=== PATIENT | female | born 1930 | race Hispanic/Latino ===

== ENCOUNTER 2017-11-27 14:58 | Emergency (ER) | payer MEDICARE ==
[2017-11-27 15:32] LABS: Basophils # (Auto) 0.1 K/mm3 (0.0-0.1); Eosinophils % (Auto) 0.3 % (0.0-4.3); Hematocrit 34.4 % (30.3-42.9); Hemoglobin 11.4 gm/dl (10.1-14.3); Lymphocytes # (Auto) 2.5 K/mm3 (1.2-5.4); Lymphocytes % (Auto) 22.4 % (13.4-35.0); Mean Corpuscular HGB Conc 33 % (30-34); Mean Corpuscular Hemoglobin 29 pg (28-32); Mean Corpuscular Volume 89 fl (79-97); Monocytes # (Auto) 0.8 K/mm3 (0.0-0.8); Monocytes % (Auto) 7.5 % (0.0-7.3); Platelet Count 420 K/mm3 (140-440); Red Blood Count 3.88 M/mm3 (3.65-5.03); Red Cell Distribution Width 15.5 % (13.2-15.2)
[2017-11-27 15:47] LABS: Calcium 9.4 mg/dL (8.4-10.2)
--- NOTE | 2017-11-27 15:52 | Cat Scan Report ---
FINAL REPORT EXAM: CT HEAD/BRAIN WO CON HISTORY: altered mental status TECHNIQUE: CT examination of the head without IV contrast PRIORS: None. FINDINGS: Small polyp or retention cyst in left ethmoid sinus posteriorly. Small benign-appearing osteoma anterior inferior right frontal sinus. Nonspecific partial opacification of the left mastoid air cells. Small fluid level noted inferiorly. Bone windows demonstrate no acute fracture. There is ventricular and sulcal prominence compatible with global cerebrocortical atrophy. The brain contains no mass, mass effect, hemorrhage, or acute infarct. There is no extra-axial intracranial bleed, brain bleed, or midline shift. IMPRESSION: No acute CVA, intracranial bleed, or brain mass Partial opacification left mastoid air cells with small fluid level may reflect eustachian tube dysfunction. Differential includes acute left mastoiditis
[2017-11-27 15:56] LABS: Bacteria,Urine 2+ /HPF (Negative); Bilirubin,Urine NEG (Negative); Blood,Urine SM (Negative); Color,Urine Yellow (Yellow); Mucus,Urine FEW /HPF; Protein,Urine <15 mg/dL mg/dL (Negative); Urobilinogen,Urine < 2.0 mg/dL (<2.0)
[2017-11-27 16:03] LABS: Amphetamine Screen,Urine PRESUMPTIVE NEGATIVE; Benzodiazepines Screen,Urine PRESUMPTIVE NEGATIVE; Cannabinoid Screen,Urine PRESUMPTIVE NEGATIVE; Cocaine Screen,Urine PRESUMPTIVE NEGATIVE; Methadone Screen,Urine PRESUMPTIVE NEGATIVE; Opiate Screen,Urine PRESUMPTIVE NEGATIVE
[2017-11-27] MEDS ORDERED: BABY ASPIRIN PO ONE (17:32)
--- NOTE | 2017-11-27 17:32 | Emergency Department Report ---
ED Neck Pain/Injury HPI - General Chief Complaint: Altered Mental Status Stated Complaint: AMS Time Seen by Provider: 11/27/17 17:12 Mode of arrival: Stretcher Limitations: Altered Mental Status - Related Data Allergies Allergy/AdvReac Type Severity Reaction Status Date / Time Unable to Assess Allergy Unverified 11/27/17 15:02 ED Review of Systems ROS: Stated complaint: AMS Other details as noted in HPI ED Past Medical Hx - Past Medical History Previous Medical History?: Yes Additional medical history: anxiety - Social History Smoking Status: Unknown if ever smoked ED Physical Exam - General Limitations: Altered Mental Status ED Course Vital Signs 11/27/17 11/27/17 11/27/17 15:02 15:05 15:11 Temperature 100 F H Pulse Rate 73 Respiratory 16 Rate Blood Pressure Blood Pressure 157/76 [Right] O2 Sat by Pulse 99 98 98 Oximetry 11/27/17 11/27/17 11/27/17 15:33 15:35 15:44 Temperature Pulse Rate Respiratory 16 Rate Blood Pressure 157/76 Blood Pressure [Right] O2 Sat by Pulse 98 97 98 Oximetry 11/27/17 11/27/17 16:00 16:30 Temperature Pulse Rate Respiratory Rate Blood Pressure 161/92 145/66 Blood Pressure [Right] O2 Sat by Pulse 97 98 Oximetry ED Medical Decision Making - Lab Data Result diagrams: 11/27/17 15:22 11/27/17 15:22 Critical care attestation.: If time is entered above; I have spent that time in minutes in the direct care of this critically ill patient, excluding procedure time. ED Disposition Condition: Stable Referrals: PRIMARY CARE, [Primary Care Provider] - 3-5 Days
--- NOTE | 2017-11-27 17:32 | Emergency Department Report ---
ED General Adult HPI - General Chief complaint: Altered Mental Status Stated complaint: AMS Time Seen by Provider: 11/27/17 17:12 Source: family, EMS (ems notes not available at time of chart dictation) Mode of arrival: Stretcher Limitations: Altered Mental Status - History of Present Illness Initial comments: This is an 87-year-old female who is unknown to this provider who is brought to the hospital with family for change in mental status. Family reports the patient has had a dramatic change in speech within the past week. They indicate that the patient needs to make sense when she was talking, but now is speaking nonsensically. The patient is altered and demented, and cannot describe exacerbating or relieving factors. Family endorses no fever, cough, vomiting. -: unknown Severity scale (0 -10): 0 Improves with: none Worsens with: none Associated Symptoms: confusion, weakness - Related Data Allergies Allergy/AdvReac Type Severity Reaction Status Date / Time Unable to Assess Allergy Unverified 11/27/17 15:02 ED Review of Systems ROS: Stated complaint: AMS Other details as noted in HPI Comment: Unobtainable due to pts medical conditions ED Past Medical Hx - Past Medical History Previous Medical History?: Yes Additional medical history: anxiety - Social History Smoking Status: Unknown if ever smoked ED Physical Exam - General Limitations: Altered Mental Status, Physical Limitation General appearance: alert, in no apparent distress, anxious - Head Head exam: Present: atraumatic, normocephalic - Eye Eye exam: Present: normal appearance - ENT ENT exam: Present: normal orophraynx, mucous membranes moist - Neck Neck exam: Present: normal inspection, full ROM - Respiratory Respiratory exam: Present: normal lung sounds bilaterally. Absent: respiratory distress - Cardiovascular Cardiovascular Exam: Present: regular rate, normal rhythm, normal heart sounds. Absent: systolic murmur, diastolic murmur, rubs, gallop - GI/Abdominal GI/Abdominal exam: Present: soft. Absent: distended, tenderness, guarding, rebound, rigid, pulsatile mass - Extremities Exam Extremities exam: Present: normal inspection, full ROM, normal capillary refill , other (2+ pulses noted in the bilateral upper, lower extremities. Compartments soft. No long bony tenderness. The pelvis is stable.). Absent: pedal edema, joint swelling, calf tenderness - Back Exam Back exam: Present: normal inspection. Absent: tenderness, CVA tenderness (R) - Neurological Exam Neurological exam: Present: altered, other (patient moving 4 extremities spontaneously. There is no obvious facial droop. Unable to assess sensation or orientation. The patient construction sentences that make no sense. She does not follow commands.) - Psychiatric Psychiatric exam: Present: anxious - Skin Skin exam: Present: warm, dry, intact, normal color. Absent: rash ED Course Vital Signs 11/27/17 11/27/17 11/27/17 15:02 15:05 15:11 Temperature 100 F H Pulse Rate 73 Respiratory 16 Rate Blood Pressure Blood Pressure 157/76 [Right] O2 Sat by Pulse 99 98 98 Oximetry 11/27/17 11/27/17 11/27/17 15:33 15:35 15:44 Temperature Pulse Rate Respiratory 16 Rate Blood Pressure 157/76 Blood Pressure [Right] O2 Sat by Pulse 98 97 98 Oximetry 11/27/17 11/27/17 11/27/17 16:00 16:30 18:02 Temperature 98.1 F Pulse Rate 65 Respiratory 16 Rate Blood Pressure 161/92 145/66 Blood Pressure 107/86 [Right] O2 Sat by Pulse 97 98 97 Oximetry ED Medical Decision Making - Lab Data Result diagrams: 11/27/17 15:22 11/27/17 15:22 Vital Signs 11/27/17 11/27/17 11/27/17 15:02 15:05 15:11 Temperature 100 F H Pulse Rate 73 Respiratory 16 Rate Blood Pressure Blood Pressure 157/76 [Right] O2 Sat by Pulse 99 98 98 Oximetry 11/27/17 11/27/17 11/27/17 15:33 15:35 15:44 Temperature Pulse Rate Respiratory 16 Rate Blood Pressure 157/76 Blood Pressure [Right] O2 Sat by Pulse 98 97 98 Oximetry 11/27/17 11/27/17 11/27/17 16:00 16:30 18:02 Temperature 98.1 F Pulse Rate 65 Respiratory 16 Rate Blood Pressure 161/92 145/66 Blood Pressure 107/86 [Right] O2 Sat by Pulse 97 98 97 Oximetry Laboratory Last Values WBC 11.0 K/mm3 (4.5-11.0) 11/27/17 15:22 RBC 3.88 M/mm3 (3.65-5.03) 11/27/17 15:22 Hgb 11.4 gm/dl (10.1-14.3) 11/27/17 15:22 Hct 34.4 % (30.3-42.9) 11/27/17 15:22 MCV 89 fl (79-97) 11/27/17 15:22 MCH 29 pg (28-32) 11/27/17 15:22 MCHC 33 % (30-34) 11/27/17 15:22 RDW 15.5 % (13.2-15.2) H 11/27/17 15:22 Plt Count 420 K/mm3 (140-440) 11/27/17 15:22 Lymph % (Auto) 22.4 % (13.4-35.0) 11/27/17 15:22 [place] % (Auto) 7.5 % (0.0-7.3) H 11/27/17 15:22 Eos % (Auto) 0.3 % (0.0-4.3) 11/27/17 15:22 Baso % (Auto) 1.0 % (0.0-1.8) 11/27/17 15:22 Lymph # 2.5 K/mm3 (1.2-5.4) 11/27/17 15:22 [place] # 0.8 K/mm3 (0.0-0.8) 11/27/17 15:22 Eos # 0.0 K/mm3 (0.0-0.4) 11/27/17 15:22 Baso # 0.1 K/mm3 (0.0-0.1) 11/27/17 15:22 Seg Neutrophils % 68.8 % (40.0-70.0) 11/27/17 15:22 Seg Neutrophils # 7.6 K/mm3 (1.8-7.7) 11/27/17 15:22 Sodium 138 mmol/L (137-145) 11/27/17 15:22 Potassium 3.4 mmol/L (3.6-5.0) L 11/27/17 15:22 Chloride 98.2 mmol/L (98-107) 11/27/17 15:22 Carbon Dioxide 24 mmol/L (22-30) 11/27/17 15:22 Anion Gap 19 mmol/L 11/27/17 15:22 BUN 13 mg/dL (7-17) 11/27/17 15:22 Creatinine 0.9 mg/dL (0.7-1.2) 11/27/17 15:22 Estimated GFR 60 ml/min 11/27/17 15:22 BUN/Creatinine Ratio 14 % 11/27/17 15:22 Glucose 118 mg/dL (65-100) H 11/27/17 15:22 Calcium 9.4 mg/dL (8.4-10.2) 11/27/17 15:22 Total Bilirubin 0.90 mg/dL (0.1-1.2) 11/27/17 15:22 AST 16 units/L (5-40) 11/27/17 15:22 ALT 7 units/L (7-56) 11/27/17 15:22 Alkaline Phosphatase 62 units/L (35-129) 11/27/17 15:22 Total Protein 7.5 g/dL (6.3-8.2) 11/27/17 15:22 Albumin 4.0 g/dL (3.9-5) 11/27/17 15:22 Albumin/Globulin Ratio 1.1 % 11/27/17 15:22 TSH 0.889 mlU/mL (0.270-4.200) 11/27/17 15:17 Urine Color Yellow (Yellow) 11/27/17 15:09 Urine Turbidity Clear (Clear) 11/27/17 15:09 Urine pH 6.0 (5.0-7.0) 11/27/17 15:09 Ur Specific [place] 1.008 (1.003-1.030) 11/27/17 15:09 Urine Protein <15 mg/dl mg/dL (Negative) 11/27/17 15:09 Urine Glucose (UA) Neg mg/dL (Negative) 11/27/17 15:09 Urine Ketones Neg mg/dL (Negative) 11/27/17 15:09 Urine Blood Sm (Negative) 11/27/17 15:09 Urine Nitrite Neg (Negative) 11/27/17 15:09 Urine Bilirubin Neg (Negative) 11/27/17 15:09 Urine Urobilinogen < 2.0 mg/dL (<2.0) 11/27/17 15:09 Ur Leukocyte Esterase Neg (Negative) 11/27/17 15:09 Urine WBC (Auto) 1.0 /HPF (0.0-6.0) 11/27/17 15:09 Urine RBC (Auto) 2.0 /HPF (0.0-6.0) 11/27/17 15:09 Urine Bacteria (Auto) 2+ /HPF (Negative) 11/27/17 15:09 Urine Mucus Few /HPF 11/27/17 15:09 Urine Opiates Screen Presumptive negative 11/27/17 15:09 Urine Methadone Screen Presumptive negative 11/27/17 15:09 Ur Barbiturates Screen Presumptive negative 11/27/17 15:09 Ur Phencyclidine Scrn Presumptive negative 11/27/17 15:09 Ur Amphetamines Screen Presumptive negative 11/27/17 15:09 U Benzodiazepines Scrn Presumptive negative 11/27/17 15:09 Urine Cocaine Screen Presumptive negative 11/27/17 15:09 U Marijuana (THC) Screen Presumptive negative 11/27/17 15:09 Drugs of Abuse Note Disclamer 11/27/17 15:09 Plasma/Serum Alcohol < 0.01 % (0-0.07) 11/27/17 15:17 - Radiology Data Radiology results: report reviewed, image reviewed Noncontrast CT scan of the brain is negative for acute disease. Chronic findings noted. - Medical Decision Making Differential diagnosis, including but not limited to: Progressing dementia, urinary tract infection, subacute stroke Assessment and plan: 87-year-old female who was brought to the hospital by EMS with altered mental status and change in speech patterns. Her family has played me a voicemail of the patient speaking one week ago and her sentence structure was lucid and articulate. Today, she makes no sense. Suspect combination of progressive dementia and subacute stroke. I have had an extensive discussion with family regarding advanced directives. The daughter informs me that she would like full code/aggressive medical therapy. However, the daughter also concedes that the patient has indicated she would like to be DNR/DNI. I had a very extensive discussion with the daughter and granddaughter regarding advanced directives and goes of care. Currently, the indicate full code. Daughter is amenable to hospital admission at this time. Dr. Garcia except the patient to the medical service for presumed subacute stroke. Patients last known well time was approximately one week ago, therefore not a TPA candidate, and will not benefit from endovascular intervention. A complete NIH score is not calculable at this time as the patient is demented and cannot participate with all aspects of this exam. Critical care attestation.: If time is entered above; I have spent that time in minutes in the direct care of this critically ill patient, excluding procedure time. ED Disposition Clinical Impression: Speech disturbance, Altered mental status Disposition: DC-09 OP ADMIT IP TO THIS HOSP Is pt being admited?: Yes Does the pt Need Aspirin: Yes Condition: Good Referrals: PRIMARY CARE,MD [Primary Care Provider] - 3-5 Days
--- NOTE | 2017-11-27 17:35 | History and Physical Report ---
History of Present Illness Chief complaint: she is weak, not eating, and not acting right History of present illness: 87 YO Female with Severe Malnutrition, Dementia with Behavioral Distubance, Debility, Cerebral Atherosclerosis, Anxiety presents to ED for evaluation. Pt is confused, and unable to provide history. Pt history provided by daughter, who is at bedside during exam and interview. As per daughter, the patient has experienced increased confusion, decreased oral intake, decreased verbalization , word salad, decreased interaction with family over the past 1 month with worsening symptoms over the past 1 week. Pt now exhibits nonsensical speech. Pt is unable to independently conduct activities of daily living. Pt seen and evaluated in ED and found to have symptoms consistent with Acute CVA. Pt is outside therapeutic window for TPA. Pt found to have a poor prognosis. Discussed risks and benefits to family, and family elects to make patient DNR and request Home Hospice Care for symptom management and comfort care. Hospice consulted in ED. Past History Past Medical History: other (Dementia, Severe malnutrition, cerebral atherosclerosis, debility) Past Surgical History: No surgical history, Other (reviewed) Social history: single, lives with family. denies: alcohol abuse, prescription drug abuse Family history: hypertension Medications and Allergies Allergies Allergy/AdvReac Type Severity Reaction Status Date / Time Unable to Assess Allergy Unverified 11/27/17 15:02 Review of Systems ROS unobtainable: due to mental status Exam - Constitutional Vitals: Temp Pulse Resp BP Pulse Ox 100 F H 73 16 145/66 98 11/27/17 15:02 11/27/17 15:02 11/27/17 15:44 11/27/17 16:30 11/27/17 16:30 General appearance: Present: mild distress, cachectic - EENT Eyes: Present: PERRL ENT: hearing intact, clear oral mucosa - Neck Neck: Present: supple, normal ROM - Respiratory Respiratory effort: normal Respiratory: bilateral: CTA - Cardiovascular Heart Sounds: Present: S1 & S2. Absent: rub, click - Extremities Extremities: pulses symmetrical, No edema Peripheral Pulses: within normal limits - Abdominal General gastrointestinal: Present: soft, non-tender, non-distended, normal bowel sounds Female genitourinary: Present: normal - Integumentary Integumentary: Present: clear, dry, decreased turgor - Musculoskeletal Musculoskeletal: generalized weakness - Psychiatric Psychiatric: no appropriate mood/affect, no intact judgment & insight, no memory intact, agitated - Neurologic Neurologic: no focal deficits, no gait normal Results - Labs CBC & Chem 7: 11/27/17 15:22 11/27/17 15:22 Labs: Abnormal lab results 11/27/17 11/27/17 Range/Units 15:22 15:22 RDW 15.5 H (13.2-15.2) % [place] % (Auto) 7.5 H (0.0-7.3) % Potassium 3.4 L (3.6-5.0) mmol/L Glucose 118 H (65-100) mg/dL Assessment and Plan - Patient Problems (1) Encephalopathy Current Visit: Yes Status: Acute Plan to address problem: CT Head, supportive care. Pt family decline CVA workup, and request comfort care measures. (2) Dementia Current Visit: Yes Status: Acute Qualifiers: Dementia type: vascular dementia Dementia behavioral disturbance: with behavioral disturbance Qualified Code(s): F01.51 - Vascular dementia with behavioral disturbance Plan to address problem: Ativan, supportive care. pain control (3) Severe malnutrition Current Visit: Yes Status: Acute Plan to address problem: Encourage oral intake when awake and alert. (4) CVA (cerebral vascular accident) Current Visit: Yes Status: Acute Qualifiers: Precerebral and cerebral artery: posterior cerebral artery Laterality of affected vessel: unspecified Plan to address problem: Pt family decline stroke protocol. Risks and benefits discussed with family. Pt family elects to have comfort care measures.
[2017-11-27] MEDS ORDERED: MILK OF MAGNESIA PO PRN (17:36)
[2017-11-27] MEDS ORDERED: TYLENOL PO PRN (17:36)
[2017-11-27] MEDS ORDERED: REGLAN PO PRN (17:36)
[2017-11-27] MEDS ORDERED: PHENERGAN PR PRN (17:36)
[2017-11-27] MEDS ORDERED: PROVENTIL IH PRN (17:36)
[2017-11-27] MEDS ORDERED: ZOFRAN IV PRN (17:36)
[2017-11-27] MEDS ORDERED: SODIUM CHLORIDE FLUSH SYRINGE 10 ML IV PRN (17:36)
[2017-11-27] MEDS ORDERED: DULCOLAX PR PRN (17:36)
[2017-11-27 20:01] LABS: Free T4 (Free Thyroxine) 1.11 ng/dL (0.76-1.46)
[2017-11-27] MEDS ORDERED: ATIVAN PO ONE (21:59)
[2017-11-27 23:23] VITALS: BP 146/88
[2017-11-28 04:32] LABS: Chol/HDL Ratio 2.53 %
[2017-11-28] MEDS ORDERED: ASPIRIN PO SCH (10:00)
== END 2017-11-28 00:27 | disposition admitted as inpatient to this hospital (09) ==
LOC: ED 14:58
DX: R41.82 Altered mental status, unspecified (principal)
CPT/HCPCS: 36415; 70450; 80053; 80061; 80307; 81001; 84439; 84443; 85025; 99285; G0480; 80320